=== PATIENT | male | born 2000 | race Caucasian/White ===

== ENCOUNTER 2023-06-10 20:09 | Emergency (ER) | payer BC ==
[~2023-06-10] VITALS: Ht 177.8 cm; Wt 81.0 kg
[2023-06-10 20:13] VITALS: TEMP 98.5
[2023-06-10 20:35] VITALS: BP 124/70; PULSE 99; RESP 17
[2023-06-10] MEDS ORDERED: VALA500T42 PO (20:44)
[2023-06-10] MEDS ORDERED: DOXY-354 PO (20:44)
[2023-06-10] MEDS ORDERED: ValACYclovir HCL 500 MG TABLET PO ONE (20:45)
[2023-06-10] MEDS ORDERED: DOXYCYCLINE HYCLATE 100 MG TABLET PO ONE (20:45)
== END 2023-06-10 20:57 | disposition home or self-care (01) ==
LOC: EMS 20:10
DX: B00.9 Herpesviral infection, unspecified (principal); Z88.8 Allergy status to other drugs, medicaments and biological substances
CPT/HCPCS: 99283